=== PATIENT | female | born 1940 | race Two or more races ===

== ENCOUNTER 2021-06-15 07:15 | Inpatient (IN) | payer OTHER ==
[~2021-06-15] VITALS: Ht 162.6 cm; Wt 72.6 kg
[2021-06-15] MEDS ORDERED: ZESTRIL10 M1 PO (09:23)
[2021-06-15] MEDS ORDERED: PENTOXIFYLLINE400 MG PO (09:24)
[2021-06-15] MEDS ORDERED: LATANOPROST 0.7.5 ML OP (09:24)
[2021-06-15] MEDS ORDERED: BETIMOL5 M1 OTIC (09:24)
[2021-06-15] MEDS ORDERED: ALENDRONATE SOD70 MG PO (09:25)
[2021-06-15] MEDS ORDERED: ECOTRIN81 MG PO (09:25)
[2021-06-15] MEDS ORDERED: DRAMAMINE LESS25 MG PO (09:25)
[2021-06-23] MEDS ORDERED: INTEGRA PLUS C1 EACH PO (07:37)
[2021-06-23] MEDS ORDERED: BACTRIM DS TAB1 EACH PO (07:37)
[2021-06-23] MEDS ORDERED: XARELTO10 MG PO (07:37)
[2021-06-23] MEDS ORDERED: OXYC1TAB9 PO (07:37)
== END 2021-06-23 18:57 | DRG 470 ==
LOC: O/R 06-20 06:10 → SURG 06-20 06:10 → SURH 06-20 07:00 → SURG 06-20 10:59
PROVIDERS: ADMIT Orthopaedic Surgery Sports Medicine; ATTEND Orthopaedic Surgery Sports Medicine
PROC: 0SRD0J9 Replacement of Left Knee Joint with Synthetic Substitute, Cemented, Open Approach (ICD-10-PCS; principal; 2021-06-20 07:00)
DX: M17.12 Unilateral primary osteoarthritis, left knee (principal); I12.9 Hypertensive chronic kidney disease with stage 1 through stage 4 chronic kidney disease, or unspecified chronic kidney disease; N18.9 Chronic kidney disease, unspecified; E66.3 Overweight; Z68.29 Body mass index [BMI] 29.0-29.9, adult